=== PATIENT | male | born 1950 | race American Indian/Alaskan Native ===

== ENCOUNTER 2017-12-07 20:46 | Emergency (ER) | payer MEDICARE ==
[2017-12-07 20:47] VITALS: BMI 27.5
[2017-12-07 21:20] VITALS: O2SAT 98
[2017-12-07 21:46] LABS: BASO % 0.4 % (0.0-2.0); EOS # 0.2 K/uL (0.0-0.7); EOS % 4.7 % (0.0-4.0); LYMPH # 1.7 K/uL (1.0-4.3); LYMPH % 35.3 % (20.0-40.0); MEAN CORPUSCULAR HEMOGLOBIN 30.7 pg (27.0-31.0); MEAN CORPUSCULAR HGB CONC 34.7 g/dL (33.0-37.0); MEAN PLATELET VOLUME 9.9 fL (7.2-11.7); MONO # 0.5 K/uL (0.0-0.8); MONO % 9.5 % (0.0-10.0); NEUT # 2.4 K/uL (1.8-7.0); NEUT % 50.1 % (50.0-75.0); NRBC % 0.1 % (0.0-2.0); RBC 4.79 Mil/uL (4.40-5.90); RED CELL DISTRIBUTION WIDTH 14.4 % (11.5-14.5); WHITE BLOOD COUNT 4.8 K/uL (4.8-10.8)
[2017-12-07 21:47] LABS: HEMOGLOBIN 14.7 g/dL (12.0-18.0); MEAN CELL VOLUME 88.5 fL (80.0-94.0)
[2017-12-07 21:58] LABS: ALB/GLOB RATIO 1.5 (1.0-2.1); ALBUMIN 4.2 g/dL (3.5-5.0); ALT/SGPT 38 U/L (21-72); AST/SGOT 40 U/L (17-59); BLOOD UREA NITROGEN 15 mg/dL (9-20); CALCIUM 9.3 mg/dl (8.6-10.4); GFR AFRICAN-AMERICAN > 60; GFR NON-AFRICAN AMERICAN > 60
[2017-12-07 22:10] LABS: CK-MB 3.23 ng/mL (0.0-3.38)
[2017-12-07] MEDS ORDERED: Lactated Ringer's 1,000 ML IV STA (23:10)
--- NOTE | 2017-12-08 00:15 | C.PDOC ---
History Of Present Illness Pt states that he was walking outside in hot weather today when he started getting dizzy. Denies LOC. Time Seen by Provider: 12/07/17 21:19 Chief Complaint (Nursing): Dizziness/Lightheaded History Per: Patient Onset/Duration Of Symptoms: Hrs (today) Current Symptoms Are (Timing): Better Associated Symptoms Preceding Syncopal Episode: Lightheadedness Possible Causative Factor(s): Lightheaded W/Exertion, Other (Hot weather outside ) Fall Associated With With Symptoms: No Severity: Moderate Additional History Per: Prior Records - Symptoms Of CVA Recent Head Trauma: No Past Medical History Reviewed: Historical Data, Nursing Documentation, Vital Signs Vital Signs: Last Vital Signs Temp 98.3 F 12/07/17 21:01 Pulse 89 12/07/17 21:17 Resp 16 12/07/17 21:17 BP 166/90 H 12/07/17 21:17 Pulse Ox 98 12/07/17 21:17 - Medical History PMH: Anemia, Arthritis, Asthma, Gastrointestinal Ulcer, HTN, Hypercholesterolemia, Kidney Stones (LEFT) Surgical History: Endoscopy (X4), Tonsillectomy - [facility] Procedures COMPUTER ASSISTED PROCEDURE OF TRUNK REGION (06/24/15) EXCISION OF MIDDLE ESOPHAGUS, ENDO, DIAGN (01/27/15) EXCISION OF STOMACH, ENDO, DIAGN (01/27/15) INTRODUCE OF OTH THERAP SUBST INTO RESP TRACT, VIA OPENING (06/24/15) RELEASE LEFT HIP TENDON, OPEN APPROACH (06/24/15) REPLACEMENT OF LEFT HIP JOINT WITH SYNTH SUB, OPEN APPROACH (06/24/15) REPOSITION LEFT ACETABULUM WITH INT FIX, OPEN APPROACH (06/24/15) ROBOTIC ASSISTED PROCEDURE OF TRUNK REGION, OPEN APPROACH (06/24/15) SUPPLEMENT LEFT ACETABULUM WITH AUTOL SUB, OPEN APPROACH (06/24/15) TRANSFUSE NONAUT RED BLOOD CELLS IN PERIPH VEIN, PERC (06/24/15) Family History: States: Unknown Family Hx - Social History Hx Tobacco Use: No Hx Alcohol Use: Yes (rarely) Hx Substance Use: No Review Of Systems Except As Marked, All Systems Reviewed And Found Negative. Constitutional: Negative for: Fever, Weakness Cardiovascular: Negative for: Chest Pain Respiratory: Negative for: Shortness of Breath, Hemoptysis Gastrointestinal: Negative for: Nausea, Vomiting, Abdominal Pain, Diarrhea Musculoskeletal: Negative for: Neck Pain, Back Pain Skin: Negative for: Rash Neurological: Negative for: Weakness, Numbness, Seizures, Headache Physical Exam - Physical Exam Appears: Non-toxic, No Acute Distress Skin: Normal Color, Warm, Dry Head: Atraumatic, Normacephalic Eye(s): bilateral: PERRL, EOMI Neck: Normal ROM, Supple Cardiovascular: Rhythm Regular Respiratory: Normal Breath Sounds, No Accessory Muscle Use Gastrointestinal/Abdominal: Soft, No Tenderness Back: No CVA Tenderness Extremity: Normal ROM Neurological/Psych: Oriented x3, Normal Motor, Normal Sensation ED Course And Treatment - Laboratory Results Result Diagrams: 12/07/17 21:26 12/07/17 21:26 Lab Interpretation: No Acute Changes ECG: Interpreted By Me, Viewed By Me ECG Rhythm: Sinus Rhythm, Nonspecific Changes Rate From EC O2 Sat by Pulse Oximetry: 98 Pulse Ox Interpretation: Normal Progress - Interventions Interventions:: Observation, Intravenous fluid - Data Reviewed Data Reviewed: Lab, EKG, Old records - Patient Status Patient status: Completely improved - Continuity of Care Discussed patient case with:: Patient, ED Nurse - Patient Plan Patient Plan: Discharge, F/U with PCP, Continue present meds Disposition Counseled Patient/Family Regarding: Studies Performed, Diagnosis, Need For Followup - Disposition Disposition: HOME/ ROUTINE Disposition Time: 00:16 Condition: IMPROVED Additional Instructions: Follow up with your doctor for further evaluation and treatment. Return to the ER if you pass out, develop shortness of breath, chest pain, weakness, numbness , trouble walking, worsening of symptoms or if you have any other concerns. Instructions: Dizziness, Nonvertigo, (DC) Forms: [facility] (Yi) - Clinical Impression Clinical Impression: Dizziness
[2017-12-08 00:46] VITALS: BP 156/81; PULSE 66; RESP 20; TEMP 98.1
--- NOTE | 2017-12-08 15:20 | CARD ---
APPROVED REPORT Date of service: 12/07/2017 EKG Measurement Heart [id number] <Conclusion> Normal sinus rhythm with sinus arrhythmia Left axis deviation Minimal voltage criteria for LVH, may be normal variant Nonspecific T wave abnormality Prolonged QT Abnormal ECG
== END 2017-12-08 00:40 | disposition home or self-care (01) ==
LOC: C.ER 20:46
DX: R42 Dizziness and giddiness (principal); D64.9 Anemia, unspecified; I10 Essential (primary) hypertension; E78.00 Pure hypercholesterolemia, unspecified; Z87.891 Personal history of nicotine dependence
CPT/HCPCS: 80053; 84484; 85025; 93005; 99285; J7120